=== PATIENT | male | born 1970 | race Caucasian/White ===

== ENCOUNTER 2023-10-24 11:08 | Emergency (ER) | payer OTHER, SELFPAY ==
--- NOTE | ~2023-10-24 | XR_ITS ---
Examination: Bilateral hand/wrist. CLINICAL INDICATION: Cat bite x4 days. The edema. COMPARISON: None. TECHNIQUE: 4 views each hand/wrist. FINDINGS: Left hand/wrist: There is no soft tissue foreign body, gas or laceration seen. No fracture or dislocation. The soft tissues are normal. No abnormality seen along the left left wrist where there was a cat bite. Right hand/wrist: There is no soft tissue gas, foreign body seen along the right proximal second digit. No fracture or dislocation. The joint spaces are maintained normal. XR/XR hand wrist RT IMPRESSION: 1. Unremarkable bilateral hand/wrist exam. 2. No soft tissue gas or foreign body seen in either hand or wrist where there is a cat bite.
--- NOTE | ~2023-10-24 | XR_ITS ---
Examination: Bilateral hand/wrist. CLINICAL INDICATION: Cat bite x4 days. The edema. COMPARISON: None. TECHNIQUE: 4 views each hand/wrist. FINDINGS: Left hand/wrist: There is no soft tissue foreign body, gas or laceration seen. No fracture or dislocation. The soft tissues are normal. No abnormality seen along the left left wrist where there was a cat bite. Right hand/wrist: There is no soft tissue gas, foreign body seen along the right proximal second digit. No fracture or dislocation. The joint spaces are maintained normal. XR/XR hand wrist LT IMPRESSION: 1. Unremarkable bilateral hand/wrist exam. 2. No soft tissue gas or foreign body seen in either hand or wrist where there is a cat bite.
--- NOTE | 2023-10-24 11:22 | ED_ITS ---
HPI - Animal Bite General Chief Complaint: Skin/Abscess/Foreign Body Stated Complaint: cat bite Time Seen by Provider: 10/24/23 18:34 Source: patient Mode of arrival: ambulatory Limitations: no limitations History of Present Illness HPI narrative: a 53-year-old male with history of type 2 diabetes controlled with metformin came in today for evaluation after was back in by a cat 3 days ago on both hands, it is an indoor cat of his friend and he just found out today up to date on her immunization, patient was started on Augmentin 4 days ago, patient notice improvement of the redness on the left hand, and slower improvement of the swelling and redness on the right hand. Patient is right handed, no fever, no chills, no drainage from the puncture wounds on both hands, right hand went from severe swelling was not able to make a fist now is able to close his right hand. Related Data Allergies Allergy/AdvReac Type Severity Reaction Status Date / Time nickel Allergy Itching Verified 10/24/23 11:23 Review of Systems 2 Review of Systems: All other systems are reviewed and are negative Constitutional: Reports as per HPI and Reports no additional constitutional complaints Eyes: Reports as per HPI and Reports no additional eye complaints Reports system reviewed and no additional complaints, except as documented Cardiovascular: Reports as per HPI and Reports no additional cardiovascular complaints Respiratory: Reports as per HPI and Reports no additional respiratory complaints Gastrointestinal: Reports as per HPI and Reports no additional gastrointestinal complaints Genitourinary: Reports no additional female genitourinary complaints Musculoskeletal: Reports no additional musculoskeletal complaints Skin/Breast: Reports system reviewed and no additional complaints, except as docu Psychiatric: Reports no additional psychiatric complaints Endocrine: Reports no additional endocrine complaints Hematologic/Lymphatic: Reports no additional hematologic/lymphatic complaints Allergic/Immunologic: Reports no additional allergic/immunologic complaints Reports system reviewed and no additional complaints, except as documented and Reports Abnormal speech present Physical Exam ED Vital Signs: Vital Signs - 24 hr 10/24/23 11:23 Temperature 97.5 F Pulse Rate 93 Respiratory Rate 18 Blood Pressure 141/85 H Pulse Oximetry 97 Oxygen Delivery Method Room Air BMI result Body Mass Index 29.0 Vital signs have been reviewed and appear to be correct. Blood pressure elevated. Heart rate normal. Respiratory rate normal. Temperature normal. Oxygen saturation normal. Appearance: Alert. Oriented X3. No acute distress. Head: Normal external exam. Normocephalic. Atraumatic. No Morris signs noted. No raccoon eyes noted Eyes: PERRLA. EOMI. Conjunctiva and sclera normal. Eyelids normal. ENT: TM's Normal. Pharynx normal. Uvula midline. Moist mucous membranes. No trismus noted. No drooling noted. No muffled voice noted. Neck: Normal inspection. Neck supple. FROM. No adenopathy. Thyroid Normal. No meningeal signs. No neck mass noted. CVS: Normal heart rate and rhythm. Heart sound normal. No murmurs noted. Pulses normal throughout. Respiratory: No respiratory distress. Painless inspiration. Breath sounds normal. No wheezes/rales/rhonchi noted. Chest nontender. No accessory muscle usage noted or decreased air movement noted. Abdomen: Soft and nontender. Bowel sounds normal in all 4 quadrants. No distention noted. No organomegaly noted. No visible injury noted. Back: No CVA tenderness. Full range of motion noted. Skin: Skin warm and dry. Normal skin color. Normal skin turgor. No rashes/lesions/lacerations noted. Extremities: + 2 puncture wounds to dorsal proximal phalynx of r second digit with edema. 2 puncture wounds to ventral right wrist, 2 puncture wounds to dorsal right wrist. full ROM intact. no streaking. no fever. 1 puncture wound to ulnar aspect L wrist. Mild redness on the dorsum of the right hand with hotness that the patient reported that is better than before. Able to flex all right hand joints. Neuro: Oriented X 3. Cranial nerve exam: II-XII are grossly intact No motor deficit. No sensory deficit. Reflexes normal. Course Course Course Narrative: RME:?53 yo male presents w/ car bite to bilateral hand via friends cat on Monday (4 days ago). unknown vaccination status. has been taking augmentin prescribed by 's friend who is a critical power install technician x4d. last dose this am. Plan: labs, blood cultures, lactic, imaging, immunizations. Full HPI, ROS and PE to be performed by the primary ED provider. Reevaluation(s) Reevaluation #1: Patient is on Augmentin day 4. After the incident, the cat is up-to-date on her immunization, appears that patient is improving with Augmentin patient was instructed to continue the hold course and return in 2 days for wound check the area was delineated with a Skin marker. Time: 18:57 Medical Decision Making Differential Diagnosis Differential Diagnoses: The differential diagnosis associated with the presentation includes ( hand cellulitis, scratch CT disease, tenosynovitis, electrolyte abnormality, severe anemia.) Admission/Observation Consideration of admission/observation: Escalation of care including admission/observation considered Lab Data MDM Lab Attestation statement: I reviewed the patient's lab results. 10/24/23 12:13 10/24/23 11:48 Labs: Lab Results 10/24/23 10/24/23 Range/Units 11:48 12:13 WBC 7.4 (4.8-10.8) X10*3/uL RBC 5.07 (4.60-5.80) X10*6/uL Hgb 14.4 (14.0-18.0) g/dl Hct 41.4 L (42.0-52.0) % MCV 81.7 (80.0-98.0) fL MCH 28.4 (27.0-33.0) pg MCHC 34.8 (31.0-36.0) g/dl RDW 12.4 (11.0-16.0) % Plt Count 205 (160-400) X10*3/uL MPV 9.6 (9.4-12.4) fL Immature Gran % (Auto) 0.8 H (0.0-0.4) % Neut % (Auto) 68.5 (45-73) % Lymph % (Auto) 19.8 L (20-40) % [place] % (Auto) 9.3 (2-11) % Eos % (Auto) 1.1 (0-4) % Baso % (Auto) 0.5 (0-2) % Lymph # (Auto) 1.5 (1.2-4.9) X10*3/uL [place] # (Auto) 0.7 (0.1-1.2) X10*3/uL Eos # (Auto) 0.1 (0.0-0.4) X10*3/uL Baso # (Auto) 0.0 (0.0-0.2) X10*3/uL Abs Immat Gran (auto) 0.06 H (0.00-0.03) X10*3/uL Absolute Neuts (auto) 5.1 (2.0-8.3) x10*3/uL Absolute Nucleated RBC 0.000 (0.0-0.012) X10*3/uL Nucleated RBC % (auto) 0.0 (0.0-0.2) /100WBC Sodium 137 (135-145) mmol/L Potassium 4.3 (3.3-5.1) mmol/L Chloride 102 (96-108) mmol/L Carbon Dioxide 25 (22-29) mmol/L Anion Gap 14 (12-20) BUN 15 (9-16) mg/dL Creatinine 0.78 (0.5-1.4) mg/dL Estim Creat Clear Calc 135.2 Estimated GFR > 60 Random Glucose 283 H (60-115) mg/dL Lactic Acid 1.8 (0.5-2.0) mmol/L Calcium 9.5 (8.4-10.2) mg/dL Independent Interpretation I performed an independent interpretation of an: Plain X-Ray ( Bilateral hand x-ray:1. Unremarkable bilateral hand/wrist exam. 2. No soft tissue gas or foreign body seen in either hand or wrist where there is a cat bite. ) Radiology Impression Discussion of test interpretation with radiology: I have reviewed the radiologist's reading. Discharge Plan Discharge Clinical Impression: Cat bite of hand, Cellulitis of hand, right Patient Disposition: Home, Self-Care Instructions: Animal Bite (ED), Cellulitis (ED) Additional Instructions: take the antibiotic as prescribed for total course of 10 days. Return to the ED for fever, chills, any drainage from the hand, increased swelling or redness of hands. Come back in 2 days for wound check. Contact your poker dealer for your high blood sugar may need further management of diabetes. Referrals: Maria Luisa Salgado MD [Primary Care Provider] -
[2023-10-24 11:23] VITALS: BP 141/85; PULSE 93; RESP 18; TEMP 36.4; O2SAT 97; BMI 29.0
[2023-10-24 12:08] LABS: Lactic Acid 1.8 mmol/L (0.5-2.0)
[2023-10-24 12:10] LABS: Anion Gap 14 (12-20); Blood Urea Nitrogen 15 mg/dL (9-16); Calcium 9.5 mg/dL (8.4-10.2); Carbon Dioxide 25 mmol/L (22-29); Chloride 102 mmol/L (96-108); Creatinine Clr Calc Pharmacy 135.2; Estimated Glomerular Filt Rate > 60; Glucose Random 283 mg/dL (60-115); Potassium 4.3 mmol/L (3.3-5.1); Sodium 137 mmol/L (135-145)
[2023-10-24 12:25] LABS: Basophils Percent Auto 0.5 % (0-2); Eosinophils Absolute Auto 0.1 X10*3/uL (0.0-0.4); Eosinophils Percent Auto 1.1 % (0-4); Hematocrit 41.4 % (42.0-52.0); Hemoglobin 14.4 g/dl (14.0-18.0); Imm Gran Abs Auto 0.06 X10*3/uL (0.00-0.03); Imm Gran Pct Auto 0.8 % (0.0-0.4); Lymphocytes Absolute Auto 1.5 X10*3/uL (1.2-4.9); Lymphocytes Percent Auto 19.8 % (20-40); Mean Corpuscular HGB Conc 34.8 g/dl (31.0-36.0); Mean Corpuscular Hemoglobin 28.4 pg (27.0-33.0); Mean Corpuscular Volume 81.7 fL (80.0-98.0); Mean Platelet Volume 9.6 fL (9.4-12.4); Monocytes Absolute Auto 0.7 X10*3/uL (0.1-1.2); Monocytes Percent Auto 9.3 % (2-11); Neutrophils Absolute Auto 5.1 x10*3/uL (2.0-8.3); Neutrophils Percent Auto 68.5 % (45-73); Platelet Count 205 X10*3/uL (160-400); Red Blood Count 5.07 X10*6/uL (4.60-5.80); Red Cell Distribution Width 12.4 % (11.0-16.0); White Blood Count 7.4 X10*3/uL (4.8-10.8)
== END 2023-10-24 19:49 | disposition home or self-care (01) ==
PROVIDERS: Physician Assistant Medical; Emergency Provider Emergency Medicine; PCP Family Medicine
DX: S61.451A Open bite of right hand, initial encounter (principal); L03.113 Cellulitis of right upper limb; M25.532 Pain in left wrist; M25.531 Pain in right wrist; W55.01XA Bitten by cat, initial encounter; Y93.9 Activity, unspecified; Y92.9 Unspecified place or not applicable; Y99.9 Unspecified external cause status
CPT/HCPCS: 36415; 73110; 73130; 80048; 83605; 85025; 87040; 99282; 99283

== ENCOUNTER 2023-10-26 10:59 | Emergency (ER) | payer OTHER, SELFPAY ==
--- NOTE | 2023-10-26 11:54 | ED.RECABL ---
HPI - Recheck/Abnormal Lab/Rx General Chief Complaint: Animal Bite Stated Complaint: follow up cat bite Time Seen by Provider: 10/26/23 11:47 Source: patient, RN notes reviewed and old records reviewed Mode of arrival: ambulatory History of Present Illness HPI narrative: 53-year-old male with a past medical history of diabetes, presenting to ED for wound check of cat bite S/P bite by on 10/21. Patient was evaluated in our ED on 10/24, previously started on Augmentin with some improvement, reports compliance with antibiotics, today being day 6 with improvement in erythema/swelling and range of motion. Denies fever/chills, numbness/tingling, drainage from area. MD complaint: wound re-check Related Data Previous Rx's Medication Instructions Recorded amoxicillin 875 mg-potassium 1 tab PO BID 4 days #8 tabs 10/26/23 clavulanate 125 mg tablet Allergies Allergy/AdvReac Type Severity Reaction Status Date / Time nickel Allergy Itching Verified 10/26/23 12:05 Review of Systems Review of Systems: Constitutional: No Fever, No Chills ENT/Mouth: No Ear Pain, No Nasal Congestion, No sore throat, No Rhinorrhea, No Swallowing Difficulty Cardiovascular: No Chest Pain, No SOB Respiratory: No Cough, No Sputum, No Wheezing Musculoskeletal: No joint pain, No Myalgias, No Joint Swelling Skin: + Skin Lesions, + rash Neuro: No Weakness, No Numbness, No Paresthesias Yes all other systems are reviewed and are negative Constitutional: Constitutional: Reports as per [facility] Past Medical History Attestation statement: The following information was validated with the patient. Source: old records reviewed Social History Social History Alcohol intake: current Alcohol intake frequency: holidays/special occasions only Smoked in Last 30 Days: No Use of substances other than those prescribed or required for medical reasons: No Advance Directives: No Physical Exam Vital Signs: Vital Signs: Last Vital Signs Temp 98.6 F 10/26/23 12:08 Pulse 95 10/26/23 12:08 Resp 16 10/26/23 12:08 BP 133/52 L 10/26/23 12:08 Pulse Ox 95 10/26/23 12:08 O2 Del Method Room Air 12/28/23 12:08 BMI result Body Mass Index 27.8 Const: General: cooperative, healthy appearing and no acute distress Orientation/consciousness: patient oriented x3 Limitations: no limitations HEENT: Head: Yes normal to inspection and Yes atraumatic Ears: hearing grossly normal bilaterally General nose exam: Normal external nose present Face and sinus: Yes normal facial exam Eyes: General: appearance normal, both eyes and all related structures EOM: EOMs intact bilaterally Neck: Neck: Yes normal visual inspection and Yes no meningeal signs Resp: Effort & Inspection: normal respiratory effort and no respiratory distress Cardio: Rate: regular rate Skin: Other: Please refer to imaging above. Appropriately healing puncture wounds/scratches and abrasions as noted with faint erythema to 2nd digit and 3rd MCP, improved from priors within demarcation. Full range of motion intact. Neurovascular intact. No crepitus or streaking. Neuro: General: patient oriented x3, tone normal and no meningeal signs Cranial nerves: Yes CN's II-XII intact bilaterally Gait exam (Neuro): Normal gait present Extrem: General: Yes normal to inspection Medical Decision Making Medical Decision Making MDM Narrative: 53-year-old male with a past medical history of diabetes, presenting to ED for wound check of cat bite S/P bite by on 10/21. Patient was evaluated in our ED on 10/24, previously started on Augmentin with some improvement, reports compliance with antibiotics, today being day 6 with improvement in erythema/swelling and range of motion. On exam vital signs stable, afebrile, nontoxic appearing, physical exam as noted above, please refer to image from today and prior from 10/24. Patient was given a total of 10 day course of Augmentin, with shared decision making will Rx additional 4 days making total 14 day course of Augmentin, discussed with patient may not need additional 4 days however will be supplied if symptoms/residual symptoms are present. Discussed strict return precautions. Low suspicion for tenosynovitis/abscess or compartment syndrome. Please refer to course for remaining clinical decision making, interpretation of labs/imaging results, and discussions with consultants and/or family members. Results discussed with patient including worrisome signs and symptoms and strict return precautions, and when to return to the emergency department. They verbalized understanding and feel safe for discharge at this time. Differential Diagnosis Differential Diagnoses: The differential diagnosis associated with the presentation includes As above Lab Data MDM Lab Attestation statement: I reviewed the patient's lab results. External Record Review External record reviewed: Inpatient record, Office record, Outpatient record, Prior outpatient labs, Prior outpatient radiology, Primary care record and Outside ED record Tests considered The following testing was considered but not selected: As above Prescription Management I considered prescription management with: Pain Medication and Antibiotic Discharge Plan Discharge Clinical Impression: Cat bite Patient Disposition: Home, Self-Care Instructions: Animal Bite (ED) Additional Instructions: Please continue taking Augmentin as prescribed An additional 4 days of Augmentin was sent to the pharmacy, if you still have any residual redness, swelling, or pain please take full [address] of close follow-up with your doctor If you have decreased range of motion, fever/chills or streaking return to the ED immediately Prescriptions: New amoxicillin-pot clavulanate 875-125 mg tablet 1 tab PO BID 4 Days Qty: 8 0RF Referrals: Maria Luisa Salgado MD [Primary Care Provider] - 3 days (For wound recheck) Interventions: ED Discharge Assessment Last Done: 10/26/23 12:32 Discharge Date/Time: 10/26/23 12:33
[2023-10-26 12:06] VITALS: BMI 27.8
[2023-10-26 12:08] VITALS: BP 133/52; PULSE 95; RESP 16; TEMP 37; O2SAT 95
== END 2023-10-26 12:33 | disposition home or self-care (01) ==
PROVIDERS: Emergency Provider Emergency Medicine; PCP Family Medicine
DX: Z48.03 Encounter for change or removal of drains (principal)
CPT/HCPCS: 99283; 99284